=== PATIENT | female | born 1965 | race Two or more races ===

== ENCOUNTER 2024-03-31 12:56 | Emergency (ER) | payer BC, SELFPAY ==
[2024-03-31 12:58] VITALS: BP 141/90
[2024-03-31 13:15] VITALS: BP 129/74
[2024-03-31 13:21] VITALS: BMI 27.8
--- NOTE | 2024-03-31 13:38 | ED.GENMED ---
History of Present Illness
General
Chief Complaint: Dizziness
Time Seen by Provider: 03/31/24 13:24
Travel History
Have you had any contact with someone who has COVID-19?: No
Do you have any symptoms of coronavirus? Fever > 100 degrees, chills, cough, shortness of breath, sore throat, loss of taste or smell, muscle aches, or headache?: No
History of Present Illness
History of Present Illness:
58-year-old female with past medical history of rheumatoid arthritis on Plaquenil presents to the emergency department for evaluation of fatigue and unintentional weight loss for the past 2 to 3 months. No associated fevers or chills. She does
report general fatigue, lightheadedness, exertional fatigue, exertional shortness of breath, and nausea during this time as well. Saw her primary care physician for this where she was ordered for labs but did not obtain these.
Past History
Past History
ED Past Surgical History: Gynecological (hysterectomy)
Social History
Tobacco: Former smoker
Alcohol: Occasional
Personal:
Living: with family
Employment: Employed
Review of Systems
Review of Systems
Allergies reviewed?: Yes
All Other Systems: ROS reviewed and negative except as documented in HPI and ROS
Phy Exam
Physical Exam
Physical Exam:
GEN: Well appearing, NAD, WDWN
Eyes: PERRLA, EOMs intact, no scleral icterus
HENT: NCAT, oral mucosa moist, no JVD, no cervical adenopathy.
Lungs: CTAB, no wheezes, rales, rhonchi, normal chest wall excursion
Cardiac: RRR, no M/R/G, no peripheral edema. Radial pulses 2+ bilat
Abdomen: S, NT, ND, NABS, no masses or hepatosplenomegaly
Neuro: AO x 3
MSK: No gross deformity or ecchymosis. No edema. No digital clubbing
Skin: No rashes, petechiae. Normal color, no pallor or jaundice.
Psych: Calm, cooperative, proper hygiene
Course
Orders/Labs/Results
Orders:
Orders
03/31/24 13:01
EKG [Electrocardiogram (*1)] Urgent
Reason for Study: Palpitations
EKG- Treatment ONCE
03/31/24 13:54
Complete Blood Count/With Diff Urgent
Comprehensive Metabolic Panel Urgent
TSH Reflex To Free T4 Urgent
Abnormal Lab Results
03/31/24
13:54
MCV 71.9 L fL
(81.0-99.0)
MCH 25.8 L pg
(27.0-31.0)
Absolute Monos (auto) 0.7 H 10^3/uL
(0.1-0.6)
Monocytes % 11.3 H %
(1.7-9.3)
Glucose 119 H mg/dl
(70-99)
03/31/24 13:54
03/31/24 13:54
Vital Signs
Initial and Last Documented VS:
Initial Vital Signs
Temp Pulse Resp BP Pulse Ox
99.1 F 86 18 141/90 98
03/31/24 12:58 03/31/24 12:58 03/31/24 12:58 03/31/24 12:58 03/31/24 12:58
Last Documented Vital Signs
Temp Pulse Resp BP Pulse Ox
99.1 F 76 8 129/74 96
03/31/24 12:58 03/31/24 13:16 03/31/24 13:16 03/31/24 13:15 03/31/24 13:16
MDM/Problems Addressed
MDM/Problems Addressed:
Patient's workup is benign. EKG is nonischemic. Labs reassuring, no evidence for malnutrition. Recommend continued primary care follow-up
*Critical Care Note
Total Time (30-74mins, 75-104mins- exclusive of procedures): Not Applicable
ED Attending Note
-
Portions of this chart may have been created with voice recognition software.� Occasional wrong word or��sound alike� substitutions may have occurred due to the inherent limitations of voice recognition software.
Discharge Plan
Departure
Patient Disposition: Home (Routine Discharge)
Date of Disposition: 03/31/24
Time of Disposition: 15:18
Patient with high blood pressure during this ER visit?: No
Discharge Problem:
Fatigue, Unintentional weight loss
Instructions: Fatigue (DC)
Prescriptions:
No Action
alprazolam 0.5 MG tablet
0.5 mg PO DAILY
Patient Comments:
11/27/2021: last filled 0.5mg on 08/17/21, 90 tabs for 90 days from [id number]. 1mg filled 11/11/22, 60 tabs for 30 days from [facility]
hydroxychloroquine 200 MG tablet
200 mg PO HS
zolpidem 10 MG tablet
10 mg PO HS
Patient Comments:
11/27/2021: last filled 10/14/21, 90 tabs for 90 days from [id number]
sertraline 50 MG tablet
50 mg PO HS
buprenorphine HCl [Belbuca] 600 MCG film
600 mcg buccal DAILY
Patient Comments:
11/27/2021: last filled 10/22/21, 60 tabs for 30 days from [facility]
meclizine 25 MG tablet
25 mg PO [id number] PRN (Reason: vertigo, dizziness ) Qty: 15 0RF
Referrals:
UNKNOWN - PT DOES,NOT KNOW [Family Provider] -
Interventions
Interventions:
*Risk Screen - Suicide Last Done: 03/31/24 12:58
*General Assessment Last Done: 03/31/24 12:58
*Neglect/Abuse Screening Last Done: 03/31/24 12:58
*ED COVID-19 Vaccine History Last Done: 03/31/24 12:58
ED- Neurological Assessment Last Done: 03/31/24 13:21
ED- Cardiac Assessment Last Done: 03/31/24 13:21
ED Swallowing Screen Last Done: 03/31/24 13:21
Discharge Date and Time
Print Language: [place]
[2024-03-31 14:00] VITALS: BP 120/68
[2024-03-31 14:03] LABS: % Basophils 0.5 % (0-2); % Eosinophils 1.3 % (0-6); % Immature Granulocytes 0.3 % (0-0.5); % Lymphocytes 29.3 % (20.5-51.1); % Monocytes 11.3 % (1.7-9.3); % Neutrophils 57.3 % (42.2-75.2); Absolute Eosinophils 0.1 10^3/uL (0-0.7); Absolute Lymphocytes 1.8 10^3/uL (1.2-3.4); Absolute Monocytes 0.7 10^3/uL (0.1-0.6); Absolute Neutrophils 3.5 10^3/uL (1.4-6.5); Hematocrit 37.3 % (37.0-47.0); Hemoglobin 13.4 g/dL (12.0-16.0); Mean Corp Hgb Conc. 35.9 g/dL (33.0-37.0); Mean Corpuscular Hgb 25.8 pg (27.0-31.0); Mean Corpuscular Volume 71.9 fL (81.0-99.0); Mean Platelet Volume 10.3 fL (7.4-10.4); Nucleated Red Blood Cells % 0 %; Platelet Count 245 10^3/uL (130-400); Red Blood Cell Count 5.19 10^6/uL (4.20-5.40); Red Cell Dist. Width 13.8 % (11.5-14.5); White Blood Cell Count 6.1 10^3/uL (4.8-10.8)
[2024-03-31 14:19] LABS: ALT (SGPT) 11 U/L (0-35); AST (SGOT) 21 U/L (14-36); Albumin 4.4 g/dl (3.5-5.0); Alkaline Phosphatase 73 U/L (38-126); Blood Urea Nitrogen 14 mg/dl (7-17); Calcium 9.2 mg/dl (8.4-10.2); Carbon Dioxide 30 mmol/L (22-30); Chloride 101 mmol/L (98-107); Estimated Creatinine Clearance 87 ml/min; Glucose 119 mg/dl (70-99); Potassium 4.3 mmol/L (3.5-5.1); Sodium 138 mmol/L (135-145); Total Bilirubin 0.6 mg/dl (0.2-1.3); Total Protein 7.1 g/dl (6.3-8.2); eGFR > 60.00
[2024-03-31 14:55] LABS: TSH Reflex To Free T4 1.16 uIU/ml (0.47-4.68)
== END 2024-03-31 15:49 | disposition home or self-care (01) ==
LOC: EMR 12:56
PROVIDERS: Physician Assistant; EMERGENCY PHYSICIAN Emergency Medicine
DX: R63.4 Abnormal weight loss (principal); R53.83 Other fatigue; R42 Dizziness and giddiness; R06.02 Shortness of breath; R11.0 Nausea; R00.2 Palpitations; M06.9 Rheumatoid arthritis, unspecified; Z87.891 Personal history of nicotine dependence
CPT/HCPCS: 99283; 80053; 84443; 85025; 93005